=== PATIENT | female | born 1995 | race Caucasian/White ===

== ENCOUNTER → 2024-08-22 | Outpatient (CLI) | payer OTHER ==
[2024-08-22 11:55] LABS: BASO % 0.7 % (0.0-1.0); EOS # 0.1 10^3/uL (0.0-0.5); EOS % 0.9 % (0.0-3.0); HEMOGLOBIN 13.7 g/dl (12.0-15.5); LYMPH # 1.9 10^3/uL (1.5-5.0); LYMPH % 33.3 % (24.0-44.0); MEAN CORPUSCULAR HEMOGLOBIN 29.3 pg (27.0-33.0); MEAN CORPUSCULAR HGB CONC 32.6 g/dl (32.0-36.5); MEAN CORPUSCULAR VOLUME 89.7 fl (80.0-96.0); MONO # 0.4 10^3/uL (0.0-0.8); MONO % 7.5 % (2.0-8.0); NEUTROPHILS # 3.3 10^3/uL (1.5-8.5); NEUTROPHILS % 57.2 % (36.0-66.0); PLATELET COUNT, AUTOMATED 328 10^3/uL (150-450); RED BLOOD COUNT 4.68 10^6/uL (4.00-5.40); WHITE BLOOD COUNT 5.7 10^3/uL (4.0-10.0)
[2024-08-22 12:06] LABS: HEMOGLOBIN A1c 5.3 % (4.0-6.0)
[2024-08-22 12:13] LABS: ERYTHROCYTE SEDIMENTATION RATE 10 mm/hr (0-20)
[2024-08-22 12:31] LABS: CORTISOL AM 20.5 UG/DL (4.3-22.4)
[2024-08-22 12:33] LABS: C REACTIVE PROTEIN QUANTITATIV < 0.50 MG/DL (<1.0); CHOLESTEROL LEVEL 201 MG/DL (<200); CHOLESTEROL RISK RATIO 2.33 (<5); LDL CHOLESTEROL 100.2 MG/DL (<100); TRIGLYCERIDES LEVEL 74 MG/DL (<150)
[2024-08-22 12:34] LABS: FOLATE > 24.0 NG/ML (>5.4); IRON (FE) 115 UG/DL (50-170); PERCENT SATURATION 25.3 % (13.2-45.0); TOTAL IRON BINDING CAPACITY 454 UG/DL (250-425)
[2024-08-22 12:35] LABS: FERRITIN 4.1 NG/ML (7.3-270.7); TOTAL 25(OH) VITAMIN D 19.4 NG/ML (20.0-100.0)
[2024-08-22 12:36] LABS: FREE T4 0.86 NG/DL (0.89-1.76); VITAMIN B12 LEVEL 677 PG/ML (211-911)
== END ==
LOC: M LAB 08:23 → M PLALAB 08:23
PROVIDERS: ATTEND Nurse Practitioner Adult Health
DX: E66.9 Obesity, unspecified (principal); R53.83 Other fatigue

== ENCOUNTER → 2025-01-07 | Outpatient (CLI) | payer OTHER | LOC: M WUC 12:26 | PROVIDERS: ATTEND Physician Assistant | DX: M25.571 Pain in right ankle and joints of right foot (principal) ==

== ENCOUNTER 2025-01-09 12:39 | Emergency (ER) | payer OTHER ==
[~2025-01-09] VITALS: Ht 165.1 cm; Wt 85.5 kg
[2025-01-09 16:53] VITALS: BP 141/77; TEMP 99; O2SAT 99
[2025-01-09] MEDS: KETOROLAC 60 MG/2 ML VIAL IM ONE (16:59)
== END 2025-01-09 18:10 | disposition home or self-care (01) ==
LOC: M ED 12:39
DX: S93.401A Sprain of unspecified ligament of right ankle, initial encounter (principal); S93.601A Unspecified sprain of right foot, initial encounter; W19.XXXA Unspecified fall, initial encounter; Y99.8 Other external cause status; Y92.89 Other specified places as the place of occurrence of the external cause; Y93.89 Activity, other specified; Z91.048 Other nonmedicinal substance allergy status
CPT/HCPCS: 73610; 73630; 96372; 99284; J1885

== ENCOUNTER → 2025-02-02 | Outpatient (CLI) | payer OTHER ==
[2025-02-02 15:01] LABS: HCG, SERUM QUALITATIVE NEGATIVE (NEGATIVE); LUTEINIZING HORMONE 2.4 mIU/ML; PROLACTIN 4.86 NG/ML
[2025-02-02 15:02] LABS: ESTRADIOL 110.7 PG/ML
[2025-02-06 16:08] LABS: ANTI MULLERIAN HORMONE 0.27 ng/mL (0.69-13.39)
[2025-02-07 12:33] LABS: DEHYDROEPIANDROSTERONE UNCONJ 819 ng/dL (113-1360)
[2025-02-07 16:42] LABS: TESTOSTERONE FREE (DIRECT) 2.8 pg/mL (0.1-6.4); TESTOSTERONE TOTAL FOR T&D 32 ng/dL (2-45)
[2025-02-07 18:13] LABS: INSULIN FREE 7.3 uIU/mL (1.5-14.9)
[2025-02-10 12:08] LABS: INSULIN TOTAL2 9.3 uIU/mL
== END ==
LOC: M PLALAB 09:49
PROVIDERS: ATTEND Physician Assistant
DX: N92.6 Irregular menstruation, unspecified (principal)

== ENCOUNTER → 2025-05-05 | Outpatient (CLI) | payer OTHER ==
[2025-05-05 18:02] LABS: PLATELET COUNT, AUTOMATED 253 10^3/uL (150-450)
[2025-05-05 18:37] LABS: HIV 1&2 SCREEN NEGATIVE (NEGATIVE)
[2025-05-05 18:45] LABS: HEPATITIS C VIRUS ABY INDEX 0.02 INDEX (<0.8)
[2025-05-05 19:30] LABS: Trichomonas vaginalis (AMP) NOT DETECTED (NEGATIVE)
[2025-05-05 19:53] LABS: GC DNA AMPLIFICATION NEGATIVE (NEGATIVE)
== END ==
LOC: M PLALAB 14:27
PROVIDERS: ATTEND Nurse Practitioner Family
DX: Z34.80 Encounter for supervision of other normal pregnancy, unspecified trimester (principal)